=== PATIENT | female | born 1990 | race Two or more races ===

== ENCOUNTER → 2023-10-18 | Outpatient (CLI) | payer OTHER ==
[2023-10-18 09:18] LABS: Basophils # (auto) 0 10 ^3/uL (0-0.2); Basophils % (auto) 0.5 % (0.0-2.0); Eosinophils # (auto) 0.1 10 ^3/uL (0-0.8); Eosinophils % (auto) 1.5 % (0.0-7.0); Hematocrit 40.4 % (36.0-46.0); Hemoglobin 13.6 g/dL (12.2-16.2); Lymphocytes # (auto) 2.1 10 ^3/uL (0.4-5.4); Lymphocytes % (auto) 35.5 % (10.0-50.0); Mean Corpuscular Hemoglobin 28.3 pg (28.0-32.0); Mean Corpuscular Hgb Conc. 33.6 g/dL (32.0-36.0); Mean Corpuscular Volume 84.3 fL (80.0-100.0); Monocytes # (auto) 0.3 10 ^3/uL (0-1.3); Monocytes % (auto) 5.4 % (0.0-12.0); Neutrophils # (auto) 3.4 10 ^3/uL (1.6-8.6); Neutrophils % (auto) 57.1 % (37.0-80.0); Red Blood Cells 4.79 10^6/uL (4.0-5.20); Red Cell Distribution Width 12.6 % (11.8-14.3); White Blood Cell 5.9 10^3/uL (4.4-10.8)
[2023-10-18 09:35] LABS: Urine Bacteria FEW /hpf (None Seen); Urine Blood 2+ /uL (Negative); Urine Clarity Turbid (Clear); Urine Color Yellow (Yellow); Urine Mucus FEW (None Seen); Urine Protein, UAD TRACE (Negative); Urine Specific Gravity 1.031 (1.001-1.035); Urine Urobilinogen Normal (Negative); Urine WBC 1 /hpf (0 - 5)
[2023-10-18 10:14] LABS: Alanine Aminotransferase 12 U/L (7-40); Albumin 4.5 g/dL (3.2-4.8); Alkaline Phosphatase 68 U/L (46-116); Anion Gap 6 (5-15); Aspartate Aminotransferase 9 U/L (13-40); BUN/Creatinine Ratio 11.1 (10.0-20.0); Bilirubin, Total 0.5 mg/dL (0.2-1.0); Blood Urea Nitrogen 9 mg/dL (9-23); Calcium 9.5 mg/dL (8.5-10.1); Carbon Dioxide 24 mmol/L (20-30); Chloride 106 mmol/L (98-107); Cholesterol 144 mg/dL (< 200); Glucose 88 mg/dL (74-106); HDL Cholesterol 40 mg/dL (40-59); LDL Cholesterol 95 mg/dL (< 100); Potassium 3.9 mmol/L (3.5-5.1); Sodium 136 mmol/L (136-145); Total Protein 7.4 g/dL (5.7-8.2); Triglycerides 132 mg/dL (< 150)
== END | disposition home or self-care (01) ==
LOC: LAB 09:01
DX: Z00.01 Encounter for general adult medical examination with abnormal findings (principal); I10 Essential (primary) hypertension; E78.5 Hyperlipidemia, unspecified; N92.1 Excessive and frequent menstruation with irregular cycle; E55.9 Vitamin D deficiency, unspecified
CPT/HCPCS: 36415; 80053; 80061; 81001; 82306; 83036; 84443; 85025

== ENCOUNTER → 2023-11-16 | Outpatient (CLI) | payer OTHER | END | disposition home or self-care (01) | LOC: XYW 08:34 | DX: N63.21 Unspecified lump in the left breast, upper outer quadrant (principal); D24.2 Benign neoplasm of left breast | CPT/HCPCS: 19083; 88305; A4648; 76642; 76942 ==

== ENCOUNTER 2024-02-07 07:38 | Day surgery (SDC) | payer OTHER ==
[2024-02-05 11:31] LABS: Urine Bacteria None Seen /hpf (None Seen)
[2024-02-05 11:39] LABS: Basophils # (auto) 0 10 ^3/uL (0-0.2); Basophils % (auto) 0.6 % (0.0-2.0); Eosinophils # (auto) 0.1 10 ^3/uL (0-0.8); Eosinophils % (auto) 1.7 % (0.0-7.0); Hematocrit 40.3 % (36.0-46.0); Hemoglobin 13.9 g/dL (12.2-16.2); Lymphocytes % (auto) 34.9 % (10.0-50.0); Mean Corpuscular Hemoglobin 29.7 pg (28.0-32.0); Mean Corpuscular Hgb Conc. 34.6 g/dL (32.0-36.0); Mean Corpuscular Volume 85.9 fL (80.0-100.0); Monocytes # (auto) 0.4 10 ^3/uL (0-1.3); Monocytes % (auto) 6.6 % (0.0-12.0); Neutrophils # (auto) 3.2 10 ^3/uL (1.6-8.6); Neutrophils % (auto) 56.2 % (37.0-80.0); Nucleated Red Blood Cells % 0.1 %; Platelet Count (auto) 354 10^3/uL (140-450); Red Blood Cells 4.69 10^6/uL (4.0-5.20); Red Cell Distribution Width 13.1 % (11.8-14.3); White Blood Cell 5.7 10^3/uL (4.4-10.8)
[2024-02-05 11:55] LABS: INR 1.03 (0.9-1.15); Partial Thromboplastin Time 28.8 SEC (24.5-34.5); Prothrombin Time 10.9 sec (9.3-11.8); Urine Blood 1+ /uL (Negative); Urine Clarity Clear (Clear); Urine Color Colorless (Yellow); Urine Protein, UAD Negative (Negative); Urine Specific Gravity 1.007 (1.001-1.035); Urine Urobilinogen Normal (Negative); Urine WBC <1 /hpf (0 - 5); Urine pH 5.5 (5.0-9.0)
[2024-02-05 12:25] LABS: Alanine Aminotransferase 16 U/L (7-40); Albumin 4.8 g/dL (3.2-4.8); Alkaline Phosphatase 75 U/L (46-116); Anion Gap 7 (5-15); Aspartate Aminotransferase 15 U/L (13-40); Bilirubin, Total 0.4 mg/dL (0.2-1.0); Blood Urea Nitrogen 9 mg/dL (9-23); Calcium 10.3 mg/dL (8.7-10.4); Carbon Dioxide 26 mmol/L (20-31); Chloride 104 mmol/L (98-107); Glucose 92 mg/dL (74-106); Potassium 3.9 mmol/L (3.5-5.1); Sodium 137 mmol/L (136-145); Total Protein 7.9 g/dL (5.7-8.2)
[~2024-02-07] VITALS: Ht 175.3 cm; Wt 88.9 kg
[~2024-02-07 07:38] MED LIST: ESCI1TAB36 PO; LISI-285 PO; NORE-79 PO
[2024-02-07] MEDS ORDERED: MORPHINE SULFATE 4 MG/ML SYR/VIAL IV PRN ×4 (08:45→11:45)
[2024-02-07] MEDS ORDERED: ONDANSETRON HCL 4 MG/2 ML VIAL IV ONE (08:45)
[2024-02-07] MEDS ORDERED: ePHEDrine SULFATE 50 MG/ML AMP IV PRN (08:45)
[2024-02-07] MEDS ORDERED: NALOXONE HCL 0.4 MG/ML VIAL IV PRN (08:45)
[2024-02-07] MEDS ORDERED: PROPOFOL 10 MG/ML 20 ML IV ONE (08:48)
[2024-02-07] MEDS ORDERED: ceFAZolin 2 GM/D5W100ml 100 ML IV ONE (08:51)
[2024-02-07] MEDS ORDERED: LIDOCAINE W/ EPINEPHRINE 1% 20ML VIAL ONE (09:03)
[2024-02-07] MEDS ORDERED: MIDAZOLAM HCL 2MG/2ML 2ml VIAL (1mg/ml) ONE (09:16)
--- NOTE | 2024-02-07 09:19 | DVH ---
ULTRASOUND GUIDED BREAST NEEDLE LOCALIZATION. INDICATION: breast mass TECHNIQUE: Informed consent was obtained. The target region was localized using ultrasound. A female technologist was present at all times. The area was prepped and draped in usual sterile fashion. The overlying skin was anesthetized with 1% lidocaine. FINDINGS: Utilizing ultrasound guidance a 5 cm needle localization wire was inserted into the target region of the right breast at 12 o'clock and left breast at 1 o'clock. Patient tolerated procedure without complication and transferred to the OR in stable condition. IMPRESSION: Successful ultrasound guided breast needle localization wire placement in the right breast at 12 o'cl ock and left breast at 1 o'clock position.
[2024-02-07] MEDS ORDERED: LIDOCAINE HCL 100 MG/5ML (2%) SYRG INJ IV ONE (10:29)
[2024-02-07] MEDS ORDERED: MORPHINE SULF PF 5 MG/10 ML VIAL ONE (10:37)
[2024-02-07] MEDS ORDERED: ePHEDrine SULFATE 50 MG/ML AMP ONE (11:15)
[2024-02-07 11:28] VITALS: TEMP 97.7; O2SAT 100
[2024-02-07 12:28] VITALS: BP 122/70; PULSE 91; RESP 18; O2SAT 98
--- NOTE | 2024-02-07 14:59 | DVHOP ---
DATE OF SURGERY: 02/07/2024 PREOPERATIVE DIAGNOSIS: Bilateral breast masses. POSTOPERATIVE DIAGNOSIS: Bilateral breast masses. SURGEON: Arthur Spencer MD ANESTHESIA: General endotracheal. ANESTHESIOLOGIST: ____ . PROCEDURE: Ultrasound-guided needle localized left and right breast mass excisions. DESCRIPTION OF PROCEDURE: Under adequate anesthesia, with the patient's skin prepped and draped following an uneventful ultrasound-guided needle localization, the patient's chest and localizing wires were prepped and draped. The patient's left breast was incised along the localizing wire. The incision was carried down through the adipose tissue and fibroadipose tissue which replaces the patient's breast tissue down onto a firm base of fibrocystic tissue. Several small cysts were disrupted during this dissection. The localizing wire and surrounding tissues were grasped with an Allis forceps and the tissue was placed on tension and the mass excised in its entirety and submitted for confirmatory mammogram, which indeed was reported by phone as containing the localizing clip. The wound was irrigated and hemostasis meticulously accomplished and then approximation of the remaining suture. Breast tissue accomplished using 2-0 Monocryl sutures. Skin and subcutaneous tissues were similarly approximated using Monocryl sutures, Dermabond glue and Steri-Strips. Subsequently, the right breast was approached in an identical manner. The tissue was grasped with an Allis forceps. The localizing wire included within the tissue being excised after the skin incision along the course of the wire. The fibrocystic tissue was excised and submitted for histopathologic examination. Similarly, the left breast mass was submitted for histopathologic examination after the completion of the imaging of the specimen. The right breast was irrigated, irrigant was aspirated. Then, the wound approximated using Monocryl sutures, Dermabond glue and Steri-Strips. The patient remained stable throughout the procedure, left the operating room following an accurate needle and sponge count with a circumferential Dorian wrap to prevent gravity induced hemorrhage. The family was thoroughly informed in the waiting room. Arthur Spencer MD PF TID: [id number] RECEIPT: [id number]
== END 2024-02-07 12:36 | disposition home or self-care (01) ==
LOC: SUR 07:38
PROVIDERS: ATTEND Surgery
DX: N63.20 Unspecified lump in the left breast, unspecified quadrant (principal); D24.2 Benign neoplasm of left breast; D24.1 Benign neoplasm of right breast; N60.31 Fibrosclerosis of right breast; N63.10 Unspecified lump in the right breast, unspecified quadrant; I10 Essential (primary) hypertension; Z79.899 Other long term (current) drug therapy; Z98.890 Other specified postprocedural states
CPT/HCPCS: 19125; 19285; 19286; 36415; 80053; 81001; 81025; 84702; 85025; 85610; 85730; 87086; 88305; 88342; J2250; J2270; J2704; 76642; 76942